=== PATIENT | female | born 1955 | race Hispanic/Latino ===

== ENCOUNTER → 2023-11-19 | Outpatient (CLI) | payer BC, OTHER | END | disposition home or self-care (01) | LOC: SHCH 13:56 | PROVIDERS: ATTEND Internal Medicine Cardiovascular Disease | DX: I87.2 Venous insufficiency (chronic) (peripheral) (principal); I87.1 Compression of vein; R01.1 Cardiac murmur, unspecified | CPT/HCPCS: 93306; 93970 ==